=== PATIENT | female | born 1965 | race American Indian/Alaskan Native ===

== ENCOUNTER 2017-08-31 07:43 | Outpatient (CLI) | payer MEDICARE ==
--- NOTE | 2017-08-31 08:52 | XRay Report ---
RIGHT SHOULDER, 3 VIEWS: HISTORY: right shoulder pain. Normal bone mineralization. No acute osseous injury or joint pathology is detected. The soft tissues are unremarkable. IMPRESSION: Right shoulder within normal limits.
== END 2017-08-31 07:44 | disposition home or self-care (01) ==
LOC: SPVIMAG 07:43
PROVIDERS: ATTEND Orthopaedic Surgery
DX: M25.511 Pain in right shoulder (principal)

== ENCOUNTER 2017-09-11 15:25 | Outpatient (CLI) | payer MEDICARE ==
--- NOTE | 2017-09-15 08:39 | Mammography Report ---
Screening mammogram: Routine views compared to prior exams the most recent being December 2015. There is a persistent area of asymmetric tissue density in the upper-outer left breast. There is also a new asymmetry in the central left breast. It is a partially circumscribed area of lobulated inhomogeneous density which is somewhat elongated measuring 5.7 cm in greatest dimension. A small lipoid cysts is also new in the posterior central right breast. With these exceptions the glandular pattern of intermediate density bilaterally is otherwise unchanged prior exams. CAD used. Impression: New left breast asymmetry. Recommendation: Additional left compression images and left breast ultrasound. BI-RADS CATEGORY: 0 = Needs additional imaging evaluation ACR BI-RADS MAMMOGRAPHIC CODES: 0 = Needs additional imaging evaluation; 1 = Negative; 2 = Benign; 3 = Probably benign; 4 = Suspicious; 5 = Malignant; 6 = Known biopsy-proven malignancy COMMENT: 1. Dense breast tissue, i.e., adenosis, fibrocystic changes, etc., may obscure an underlying neoplasm. 2. Approximately 10% of cancers are not detected with mammography. 3. A negative mammography report should not delay biopsy if a clinically suspicious mass is present.
== END 2017-09-11 15:26 | disposition home or self-care (01) ==
LOC: SPVWC 15:25
DX: Z12.31 Encounter for screening mammogram for malignant neoplasm of breast (principal); I10 Essential (primary) hypertension
CPT/HCPCS: 77067; G0202

== ENCOUNTER 2018-03-22 08:39 | Outpatient (CLI) | payer MEDICARE ==
--- NOTE | 2018-03-22 15:20 | Ultrasound Report ---
LEFT DIGITAL DIAGNOSTIC MAMMOGRAM and LEFT BREAST ULTRASOUND: 03/22/18 08:39:00 CLINICAL: Recalled for asymmetry. COMPARISON:09/11/17 screening FINDINGS: Routine views plus ML and spot compression CC views were performed. Partial effacement of asymmetry in the central posterior breast. A cluster of oil cysts is identified within the asymmetry. Ultrasound of the left breast (including all four quadrants and the retroareolar area) was performed and demonstrated a cyst with internal echoes at 8 o'clock 4 cm from the nipple measuring 5 x 4 x 5 mm. A scar at 5:30 o'clock 6 cm from the nipple measures 1.1 x 0.5 x 1.1 cm. a cyst at 3 o'clock 4 cm from nipple measures 7 x 5 x 8 mm and a cyst at 4 o'clock 5 cm from the nipple measures 10 x 3 x 4 mm. A cyst at 9 o'clock 3 cm from nipple measures 6 x 3 x 6 mm. IMPRESSION: Benign cysts and benign fat necrosis. No suspicious findings. BI-RADS CATEGORY: 2 - - Benign RECOMMENDATION: Routine mammographic screening in one year. ACR BI-RADS MAMMOGRAPHIC CODES: 0 = Needs additional imaging evaluation; 1 = Negative; 2 = Benign; 3 = Probably benign; 4 = Suspicious; 5 = Malignant; 6 = Known biopsy-proven malignancy COMMENT: 1. Dense breast tissue, i.e., adenosis, fibrocystic changes, etc., may obscure an underlying neoplasm. 2. Approximately 10% of cancers are not detected with mammography. 3. A negative mammography report should not delay biopsy if a clinically suspicious mass is present. COMMENT: Patient follow-up letters are generated via our [employer] application.
== END 2018-03-22 08:40 | disposition home or self-care (01) ==
LOC: SPVWC 08:39
PROVIDERS: ATTEND Nurse Practitioner Family
DX: N60.02 Solitary cyst of left breast (principal); N64.89 Other specified disorders of breast; I10 Essential (primary) hypertension; J45.909 Unspecified asthma, uncomplicated; M19.90 Unspecified osteoarthritis, unspecified site; Z91.81 History of falling; Z95.0 Presence of cardiac pacemaker

== ENCOUNTER 2019-07-19 16:02 | Outpatient (CLI) | payer MEDICARE ==
--- NOTE | 2019-07-20 16:04 | Mammography Report ---
DIGITAL SCREENING MAMMOGRAM WITH CAD, 07/19/2019 INDICATION: Routine screening mammography. TECHNIQUE: Digital bilateral 2D mammography was obtained in the craniocaudal and mediolateral obliq ue projections. This examination was interpreted with the benefit of Computer-Aided Detection analysi s. COMPARISON: 09/11/2017 FINDINGS: Breast Density: The breasts are heterogeneously dense, which may obscure small masses. There is no evidence of dominant mass, suspicious calcifications or architectural distortion in eithe r breast. Bilateral central focal fat necrosis with benign oil cysts. A few scattered bilateral benig n calcifications. IMPRESSION: No mammographic evidence of malignancy. Follow up recommendation: Routine yearly BI-RADS Category 2: Benign. A "normal" or negative report should not discourage follow up or biopsy of a clinically significant f inding. A written summary of these findings will be mailed to the patient. The patient will be entered into a mammography reporting system which will generate a reminder letter for the patient's next appointmen t at the appropriate interval. The [employer] recommends yearly mammograms starting at age 40 and continuing as l jose j as a woman is in good health. Breast MRI is recommended for women with an approximate 20-25% or greater lifetime risk of breast cancer, including women with a strong family history of breast or ova vincent cancer or who have been treated for Hodgkin's disease. Signer Name: Ceasar Henry MD Signed: 07/20/2019 4:00 PM Workstation Name: [id number]
== END 2019-07-19 16:03 | disposition home or self-care (01) ==
LOC: SPVWC 16:02
PROVIDERS: ATTEND Family Medicine
DX: Z12.31 Encounter for screening mammogram for malignant neoplasm of breast (principal)
CPT/HCPCS: 77067

== ENCOUNTER 2020-07-31 12:55 | Outpatient (CLI) | payer MEDICARE ==
--- NOTE | 2020-08-01 08:05 | Mammography Report ---
BILATERAL DIGITAL SCREENING MAMMOGRAM WITH CAD HISTORY: SCREENING MAMMO TECHNIQUE: Routine digital mammographic imaging performed. This examination was interpreted with gatito mejias benefit of Computer-aided Detection analysis. COMPARISON: 07/19/2019, 09/11/2017, 12/28/2015. FINDINGS: Breast Density: predominantly fatty breast parenchymal pattern. Digital CC and MLO views demonstrate no mammographic evidence of malignancy. Stable benign-appearing oil cysts located centrally within both breasts. IMPRESSION: No mammographic evidence of malignancy. If the clinical examination remains stable, recommend bilate ral mammogram in approximately one year. BIRADS 2: Benign Finding(s). FURTHER INFORMATION: According to the [employer], yearly mammograms are recommend ed starting at age 40 and continuing as long as a woman is in good health. Clinical Breast Exams shou ld be part of a periodic health exam-about every 3 years for women in their 20s and 30s and every yea r for women 40 and over. Breast self exam is an option for women starting in their 20s. Any breast ch chaim noted on a breast self exam should be reported promptly to the patient's healthcare provider. Br east MRI is recommended for women with an approximately 20-25% or greater lifetime risk of breast can cer, including women with a strong family history of breast or ovarian cancer and women who have been treated for Hodgkin's disease. A negative Mammography report should not discourage follow up or biopsy of a clinically significant f inding and/or abnormality. Dense breast tissue may obscure small neoplasms. The patient will be entered into a reminder system with a target due date for the next screening mamm ogram. Signer Name: Gianni Gipson MD Signed: 08/01/2020 8:00 AM Workstation Name: [id number]
== END 2020-07-31 12:56 | disposition home or self-care (01) ==
LOC: SPVWC 12:55
PROVIDERS: ATTEND Family Medicine
DX: Z12.31 Encounter for screening mammogram for malignant neoplasm of breast (principal); N64.89 Other specified disorders of breast
CPT/HCPCS: 77067

== ENCOUNTER 2021-08-08 12:31 | Outpatient (CLI) | payer MEDICARE ==
--- NOTE | 2021-08-08 16:52 | Mammography Report ---
DIGITAL SCREENING MAMMOGRAM WITH CAD, 08/08/2021 CLINICAL INFORMATION / INDICATION: Routine screening mammography. SCREENING MAMMO TECHNIQUE: Digital bilateral 2D mammography was obtained in the craniocaudal and mediolateral obliqu e projections. This examination was interpreted with the benefit of Computer-Aided Detection analysis . COMPARISON: 07/31/2020 FINDINGS: Breast Density: There are scattered areas of fibroglandular density. No dominant mass, suspicious calcifications, or architectural distortion in either breast. Largely unchanged nodular densities in the breasts, commonly fibroglandular or fibrocystic change. IMPRESSION: No mammographic evidence of malignancy. Follow up recommendation: Routine yearly BI-RADS Category 2: Benign. A "normal" or negative report should not discourage follow up or biopsy of a clinically significant f inding. A written summary of these findings will be mailed to the patient. The patient will be entered into a mammography reporting system which will generate a reminder letter for the patient's next appointmen t at the appropriate interval. The [employer] recommends yearly mammograms starting at age 40 and continuing as l jose j as a woman is in good health. Breast MRI is recommended for women with an approximate 20-25% or greater lifetime risk of breast cancer, including women with a strong family history of breast or ova vincent cancer or who have been treated for Hodgkin's disease. Signer Name: Tiago Hirsch MD Signed: 08/08/2021 4:48 PM Workstation Name: [id number]
== END 2021-08-08 12:32 | disposition home or self-care (01) ==
LOC: SPVWC 12:31
PROVIDERS: ATTEND Family Medicine
DX: Z12.31 Encounter for screening mammogram for malignant neoplasm of breast (principal)
CPT/HCPCS: 77067